=== PATIENT | female | born 1945 | race Caucasian/White ===

== ENCOUNTER 2019-04-26 14:41 | Emergency (ER) | payer OTHER, SELFPAY ==
[2019-04-26 14:47] VITALS: BP 132/74; PULSE 87; RESP 20; TEMP 36.6; O2SAT 96; BMI 25.1
--- NOTE | 2019-04-26 15:34 | ED.SKABFB ---
HPI - Skin/Abscess/Foreign Bdy General Chief complaint: Skin/Abscess/Foreign Body Stated complaint: had a Biopsy done, still bleeding Time Seen by Provider: 04/26/19 15:34 Source: patient Mode of arrival: ambulatory Limitations: no limitations History of Present Illness HPI narrative: Patient presents with bleeding from biopsy sites today. She has had chronic wounds on her medial thighs bilaterally since December after returning from [facility]. She finally said loin trimmer to got them biopsied. However it has been bleeding quite a bit since then she has been applying pressure of on able to get it stopped. MD complaint: lesion Related Data Home Medications Medication Instructions Recorded Confirmed Calcium/Magnesium (#SHAW MAG 1 tab PO Q DAY #0 08/13/11 ASPARTATE 333.3 MG-166.7 MG) GLUCOSAMINE/MSM/CHONDROIT SULF 1 tab PO Q DAY #0 08/13/11 (Aetlicrqpyn-Gvsydhyhs-FGK Tab) cholecalciferol (vitamin D3) 1,000 iu PO Q DAY #0 08/13/11 [Vitamin D3] olopatadine 1 drp OPHTHALMIC (EYE) DAILY 04/26/19 04/26/19 Allergies Allergy/AdvReac Type Severity Reaction Status Date / Time From MONISTAT 1 COMBO PACK Allergy Mild VAGINAL Uncoded 01/04/18 12:04 SWELLING Review of Systems Review of Systems GENERAL: Denies chills,fever HEENT: Denies throat pain RESPIRATORY: Denies dyspnea, cough, wheezing CARDIOVASCULAR: Denies chest pain, palpitations GASTROINTESTINAL: Denies nausea, vomiting MUSCULOSKELETAL: Denies extremity pain, injury SKIN: See HPI NEUROLOGIC: Denies weakness, dizziness, headache, numbness 8 point review of systems is negative except for those stated above and [facility] Medical History Patient denies significant medical history (Acute) Social History Smoking Status: Never smoker Social History Smoking Status: Never smoker Exam Initial Vital Signs Initial Vital Signs: Vital Signs Temperature 97.8 F 04/26/19 14:47 Pulse Rate 87 04/26/19 14:47 Respiratory Rate 20 04/26/19 14:47 Blood Pressure 132/74 04/26/19 14:47 Pulse Oximetry 96 04/26/19 14:47 GENERAL: Well-appearing, well-nourished and in no acute distress. CARDIOVASCULAR: peripheral pulses in tact, cap refill <2 sec RESPIRATORY: No respiratory distress, speaks in full sentences without difficulty EXTREMITIES: Normal range of motion, no clubbing or edema. Neurovascularly intact NEUROLOGICAL: Cranial nerves II through XII grossly intact. Normal gait and speech. SKIN: Bilateral wounds and biopsy sites noted medial upper thighs. Dressing does have a large clot dressing removed. There is actually no active bleeding from either site at this time. No erythema no gross drainage no pus. Course Vital Signs - 8 hr 04/26/19 14:47 04/26/19 16:12 Temperature 97.8 F Pulse Rate 87 85 Respiratory Rate 20 18 Blood Pressure 132/74 128/78 Pulse Oximetry 96 97 MDM - Skin/Abscess/Foreign Bdy MDM Narrative Medical decision making narrative: Surgicel placed to both areas and Ana Laura bandages placed over, by myself. At this time bleeding is controlled no sign of infection. I did fax a wound care referral over for her. These wounds are clearly not healing but do not appear infected at this time. Discharge Plan Departure Patient Disposition: Home Clinical Impression: Chronic wound of extremity Discharge Date/Time: 04/26/19 16:05 Interventions: ED Discharge Assessment Last Done: 04/26/19 16:12 Instructions: How to Care for a Surgical Wound Activity Restrictions/Additional Instructions: *You have been diagnosed with chronic wound *What to do: Keep dressing on for 24-48 hours it is water proved you can actually leave the dressing on for up to 5-7 days. *Continue to take medications as directed *Follow up with your primary care provider in 2-3 days, wound care call tomorrow to schedule appointment *Return to ER if you should have persistent bleeding redness pus drainage or any new, worsening or concerning symptoms Prescriptions: No Action Calcium/Magnesium (#SHAW MAG ASPARTATE 333.3 MG-166.7 MG) 1 tab PO Q DAY Qty: 0 RF: 0 cholecalciferol (vitamin D3) [Vitamin D3] 1,000 UNIT tablet 1,000 iu PO Q DAY Qty: 0 RF: 0 GLUCOSAMINE/MSM/CHONDROIT SULF (Vemilozmyxe-Soispthso-HRN Tab) 1 tab PO Q DAY Qty: 0 RF: 0 olopatadine 0.2 % drops 1 drp ophthalmic (eye) DAILY RF: 0 Referrals: Julio Marcos MD [Physician] -
--- NOTE | 2019-04-26 15:57 | ED_ITS ---
HPI - Skin/Abscess/Foreign Bdy General Chief complaint: Skin/Abscess/Foreign Body Stated complaint: had a Biopsy done, still bleeding Time Seen by Provider: 04/26/19 15:34 Source: patient Mode of arrival: ambulatory Limitations: no limitations History of Present Illness HPI narrative: Patient presents with bleeding from biopsy sites today. She has had chronic wounds on her medial thighs bilaterally since December after returning from [facility]. 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 However it has been bleeding quite a bit since then she has been applying pressure of on able to get it stopped. MD complaint: lesion Related Data Home Medications Medication Instructions Recorded Confirmed Calcium/Magnesium (#SHAW MAG 1 tab PO Q DAY #0 08/13/11 ASPARTATE 333.3 MG-166.7 MG) GLUCOSAMINE/MSM/CHONDROIT SULF 1 tab PO Q DAY #0 08/13/11 (Cpooymcvgge-Ilaitrivi-IKY Tab) cholecalciferol (vitamin D3) 1,000 iu PO Q DAY #0 08/13/11 [Vitamin D3] olopatadine 1 drp OPHTHALMIC (EYE) DAILY 04/26/19 04/26/19 Allergies Allergy/AdvReac Type Severity Reaction Status Date / Time From MONISTAT 1 COMBO PACK Allergy Mild VAGINAL Uncoded 01/04/18 12:04 SWELLING Review of Systems Review of Systems GENERAL: Denies chills,fever HEENT: Denies throat pain RESPIRATORY: Denies dyspnea, cough, wheezing CARDIOVASCULAR: Denies chest pain, palpitations GASTROINTESTINAL: Denies nausea, vomiting MUSCULOSKELETAL: Denies extremity pain, injury SKIN: See HPI NEUROLOGIC: Denies weakness, dizziness, headache, numbness 8 point review of systems is negative except for those stated above and HPI [facility] Medical History Patient denies significant medical history (Acute) Social History Smoking Status: Never smoker Social History Smoking Status: Never smoker Exam Initial Vital Signs Initial Vital Signs: Vital Signs Temperature 97.8 F 04/26/19 14:47 Pulse Rate 87 04/26/19 14:47 Respiratory Rate 20 04/26/19 14:47 Blood Pressure 132/74 04/26/19 14:47 Pulse Oximetry 96 04/26/19 14:47 GENERAL: Well-appearing, well-nourished and in no acute distress. CARDIOVASCULAR: peripheral pulses in tact, cap refill <2 sec RESPIRATORY: No respiratory distress, speaks in full sentences without difficulty EXTREMITIES: Normal range of motion, no clubbing or edema. Neurovascularly intact NEUROLOGICAL: Cranial nerves II through XII grossly intact. Normal gait and speech. SKIN: Bilateral wounds and biopsy sites noted medial upper thighs. Dressing does have a large clot dressing removed. There is actually no active bleeding from either site at this time. No erythema no gross drainage no pus. Course Vital Signs - 8 hr 04/26/19 14:47 04/26/19 16:12 Temperature 97.8 F Pulse Rate 87 85 Respiratory Rate 20 18 Blood Pressure 132/74 128/78 Pulse Oximetry 96 97 MDM - Skin/Abscess/Foreign Bdy MDM Narrative Medical decision making narrative: Surgicel placed to both areas and Ana Laura bandages placed over, by myself. At this time bleeding is controlled no sign of infection. I did fax a wound care referral over for her. These wounds are clearly not healing but do not appear infected at this time. Discharge Plan Departure Patient Disposition: Home Clinical Impression: Chronic wound of extremity Discharge Date/Time: 04/26/19 16:05 Interventions: ED Discharge Assessment Last Done: 04/26/19 16:12 Instructions: How to Care for a Surgical Wound Activity Restrictions/Additional Instructions: *You have been diagnosed with chronic wound *What to do: Keep dressing on for 24-48 hours it is water proved you can actually leave the dressing on for up to 5-7 days. *Continue to take medications as directed *Follow up with your primary care provider in 2-3 days, wound care call tomorrow to schedule appointment *Return to ER if you should have persistent bleeding redness pus drainage or any new, worsening or concerning symptoms Prescriptions: No Action Calcium/Magnesium (#SHAW MAG ASPARTATE 333.3 MG-166.7 MG) 1 tab PO Q DAY Qty: 0 RF: 0 cholecalciferol (vitamin D3) [Vitamin D3] 1,000 UNIT tablet 1,000 iu PO Q DAY Qty: 0 RF: 0 GLUCOSAMINE/MSM/CHONDROIT SULF (Agvkbdhqnkr-Lqnkpdpbg-BTC Tab) 1 tab PO Q DAY Qty: 0 RF: 0 olopatadine 0.2 % drops 1 drp ophthalmic (eye) DAILY RF: 0 Referrals: Julio Marcos MD [Physician] -
[2019-04-26 16:12] VITALS: BP 128/78; PULSE 85; RESP 18; O2SAT 97
== END 2019-04-26 16:05 | disposition home or self-care (01) ==
PROVIDERS: Emergency Provider Emergency Medicine
DX: S71.102A Unspecified open wound, left thigh, initial encounter (principal); S71.101A Unspecified open wound, right thigh, initial encounter; T81.89XA Other complications of procedures, not elsewhere classified, initial encounter
CPT/HCPCS: 99282

== ENCOUNTER → 2019-05-03 11:25 | Outpatient (CLI) | payer OTHER, SELFPAY | PROVIDERS: Visit Provider Family Medicine | DX: S71.101A Unspecified open wound, right thigh, initial encounter (principal); S71.102A Unspecified open wound, left thigh, initial encounter; B55.1 Cutaneous leishmaniasis; M79.652 Pain in left thigh; M79.651 Pain in right thigh | CPT/HCPCS: 99203; 99214 ==